=== PATIENT | male | born 1940 | race Caucasian/White ===

== ENCOUNTER 2019-02-04 09:55 | Day surgery (SDC) | payer MEDICARE, OTHER ==
[2019-01-28 15:12] VITALS: BMI 27.8
[~2019-02-04 09:55] MED LIST: ALPRAZolam 0.25 MG TAB PO PRN; ALPRAZolam 0.5 MG TAB PO PRN; ASPIRIN 325 MG TAB PO STA; ATORVASTATIN 80 MG TAB PO STA; NITROGLYCERIN SL TABS 0.4 MG TAB SUBLINGUAL PRN; SODIUM CHLORIDE 0.9% 1,000 ML in EMPTY BAG 1 BAG IV ONE
[2019-02-04 10:45] LABS: Glucose,Whole Blood 147 mg/dL (75-99)
[2019-02-04] MEDS ORDERED: SODIUM CHLORIDE 0.9% 1,000 ML IV ONE (11:00)
[2019-02-04 11:16] LABS: Basophils # (A) 0.1 k/uL (0-0.2); Basophils % (A) 1 %; Eosinophils # (A) 0.2 k/uL (0-0.7); Eosinophils % (A) 2 %; HGB 16.2 gm/dL (13.0-17.5); Lymphocytes # (A) 1.4 k/uL (1.0-4.8); Lymphocytes % (A) 20 %; MCH 30.3 pg (25.0-35.0); MCHC 33.1 g/dL (31.0-37.0); MCV 91.3 fL (80.0-100.0); Mean Platelet Volume 7.7; Monocytes # (A) 0.4 k/uL (0-1.0); Monocytes % (A) 6 %; Neutrophils # (A) 5.1 k/uL (1.3-7.7); Neutrophils % (A) 70 %; Platelet Count 230 k/uL (150-450); RBC 5.37 m/uL (4.30-5.90); RDW 13.2 % (11.5-15.5); WBC 7.3 k/uL (3.8-10.6)
[2019-02-04 11:41] LABS: Calcium 9.4 mg/dL (8.4-10.2); Potassium 4.2 mmol/L (3.5-5.1)
[2019-02-04 12:15] VITALS: RESP 16; TEMP 98.3
[2019-02-04] MEDS: MIDAZOLAM (PF) 2 MG/2 ML VIAL IV ONE ×2 (13:06→13:13)
[2019-02-04] MEDS ORDERED: LIDOCAINE 1% INJ 10MG/ML (20 ML MDV) SQ ONE (13:09)
[2019-02-04] MEDS ORDERED: VERAPAMIL SYRINGE (5 MG/10 ML) INTRAARTER ONE (13:11)
[2019-02-04] MEDS ORDERED: IOPAMIDOL-370 100ML BTL INJ ONE (13:20)
[2019-02-04] MEDS ORDERED: RX INFO: IV CONTRAST WAS GIVEN 1 EACH MISC MISCELLANE PRN (13:28)
[2019-02-04] MEDS ORDERED: SODIUM CHLORIDE 0.9% 1,000 ML IV SCH (13:30)
[2019-02-04 19:52] VITALS: BP 131/72; PULSE 59
--- NOTE | 2019-02-04 20:55 | CC ---
CARDIAC CATHETERIZATION REPORT DATE OF SERVICE: 02/04/2019 PERFORMING PHYSICIAN: Mac James MD, hat former. PROCEDURE PERFORMED: Selective right and left coronary angiogram. INDICATION: This is a pleasant 78-year-old gentleman who sees Dr. Lazo in the office as an outpatient with history of peripheral arterial disease and prior peripheral revascularization percutaneously as well as hypertension and dyslipidemia. He was experiencing shortness of breath with exertion concerning for severe coronary artery disease. Because of that, a heart catheterization was advised. APPROACH: Right radial artery. COMPLICATIONS: None. LEVEL OF SEDATION: Moderate, with sedation length of 14 minutes. PROCEDURE DESCRIPTION: After obtaining informed consent, the patient was brought to the cardiac mineral ore processing labourer. The right radial artery was cannulated using micropuncture technique. The micropuncture wire passed easily. Then I placed a 5-Latvian sheath. I gave the patient 2 mg of verapamil IA and 10,000 units of heparin IV. Selective right and left coronary angiogram was performed using JR4 and JL3.5 catheters. The procedure was completed without any complication. SELECTIVE CORONARY ANGIOGRAM: 1. The RCA is a large-caliber vessel. It is a dominant vessel and appeared to be angiographically normal. It distally bifurcates into PDA and PLV branches. Both appeared to be angiographically normal. 2. The left main is angiographically normal. It bifurcates into left circumflex and left anterior descending artery. 3. The left circumflex is a large-caliber vessel. It is a nondominant vessel. The proximal circumflex is angiographically normal and gives rise to a large OM branch which seems to be normal. The mid circumflex is normal and gives rise to a second OM branch which seems to be normal. The circumflex continues after that as a small- caliber vessel in the AV groove. 4. The LAD is a large-caliber vessel. The proximal LAD appeared to be normal and gives rise to a large diagonal branch which seems to be normal. The LAD in the mid and distal portion appeared to be normal. The LAD does reach the apex. CONCLUSION: 1. Normal coronary angiogram. 2. Possible dilated ascending aorta. POST-PROCEDURE MANAGEMENT: 1. Maximize medical treatment. 2. I would recommend obtaining a CTA of the thoracic aorta to assess for aneurysmal dilatation of the aorta. MMODL / IJN: [id number] /
== END 2019-02-04 18:42 | disposition home or self-care (01) ==
LOC: CATHCVL 09:55 → EDSEX 12:00 → CATHCVL 18:42
PROVIDERS: ATTEND Internal Medicine Interventional Cardiology
DX: R06.02 Shortness of breath (principal); I73.9 Peripheral vascular disease, unspecified; R94.31 Abnormal electrocardiogram [ECG] [EKG]; I10 Essential (primary) hypertension; E78.5 Hyperlipidemia, unspecified; I71.2 Thoracic aortic aneurysm, without rupture; E11.9 Type 2 diabetes mellitus without complications; F17.210 Nicotine dependence, cigarettes, uncomplicated; Z79.02 Long term (current) use of antithrombotics/antiplatelets; Z79.899 Other long term (current) drug therapy
CPT/HCPCS: 93454; 80048; 85025; C1769; C1894; J2001; J1644; Q9967; J2250

== ENCOUNTER 2020-04-07 12:15 | Inpatient (IN) | payer MEDICARE, OTHER ==
--- NOTE | 2020-04-07 13:17 | ED ---
URI HPI - General Chief Complaint: Upper Respiratory Infection Stated Complaint: COVID testing Time Seen by Provider: 04/07/20 12:40 Source: patient, family, RN/MD, RN notes reviewed Mode of arrival: ambulatory Limitations: no limitations - History of Present Illness Initial Comments: this is a 79-year-old male with a history of bladder cancer, CVA, chronic kidney disease who 6 days ago started having symptoms of a upper respiratory infection. He was tested for Covid 19 and over the nasal swab was negative the PCR test was positive. He has been having shortness of breath exertional dyspnea started developing a fever today was 99.5 upon arrival here. Also some body aches. No overt chest pain no other modifying factors at this time MD Complaint: fever, cough, nasal congestion, other - Related Data Home Medications Medication Instructions Recorded Confirmed Allopurinol [Zyloprim] 100 mg PO HS 01/28/19 02/04/19 Aspirin [Adult Low Dose Aspirin EC] 81 mg PO HS 01/28/19 02/04/19 Clopidogrel Bisulfate [Plavix] 75 mg PO DAILY 01/28/19 02/04/19 Glimepiride [Amaryl] 1 mg PO AC-BRKFST 01/28/19 02/04/19 Losartan [Cozaar] 25 mg PO DAILY 01/28/19 02/04/19 Metoprolol Succinate [Toprol Xl] 50 mg PO DAILY 01/28/19 02/04/19 Pantoprazole Sodium [Protonix] 40 mg PO DAILY 01/28/19 02/04/19 Rosuvastatin [Crestor] 20 mg PO HS 01/28/19 02/04/19 Vitamin D + Calcium 1 tab PO DAILY 01/28/19 02/04/19 amLODIPine [Norvasc] 5 mg PO DAILY 01/28/19 02/04/19 Allergies Allergy/AdvReac Type Severity Reaction Status Date / Time latex Allergy Rash/Hives Verified 02/04/19 11:14 Review of Systems ROS Statement: Those systems with pertinent positive or pertinent negative responses have been documented in the HPI. ROS Other: All systems not noted in ROS Statement are negative. Past Medical History Past Medical History: Blood Disorder, Cancer, CVA/TIA, Diabetes Mellitus, GERD/Reflux, Hypertension, Renal Disease, Vascular Disorder Additional Past Medical History / Comment(s): stroke 2002-no residual effects, SOB on excertion, severe vascular disease, varicose veins, hx past polycythemia, bladder cancer, hx anemia, stage III kidney disease, elevated PSA History of Any Multi-Drug Resistant Organisms: None Reported Past Surgical History: Appendectomy Additional Past Surgical History / Comment(s): stent in left leg 2007, parathryoidectomy, alejandro cataracts Past Anesthesia/Blood Transfusion Reactions: No Reported Reaction Past Psychological History: No Psychological Hx Reported Past Alcohol Use History: None Reported Past Drug Use History: None Reported - Past Family History Brother(s) Family Medical History: Cancer Mother Family Medical History: Deep Vein Thrombosis (DVT) General Exam - General Exam Comments Initial Comments: this is a well-developed well-nourished awake alert oriented 3 male Limitations: no limitations General appearance: alert, anxious Head exam: Present: atraumatic, normocephalic, normal inspection Eye exam: Present: normal appearance, PERRL, EOMI. Absent: scleral icterus, conjunctival injection, periorbital swelling ENT exam: Present: normal exam, mucous membranes moist Neck exam: Present: normal inspection, full ROM, other (no stridor JVD or bruits). Absent: tenderness, meningismus, lymphadenopathy Respiratory exam: Present: decreased breath sounds, other (some scattered wheezes noted). Absent: respiratory distress, wheezes, rales, rhonchi, stridor Cardiovascular Exam: Present: regular rate, normal rhythm, normal heart sounds. Absent: systolic murmur, diastolic murmur, rubs, gallop, clicks GI/Abdominal exam: Present: soft, normal bowel sounds. Absent: distended, tenderness, guarding, rebound, rigid Extremities exam: Present: normal inspection, full ROM, normal capillary refill. Absent: tenderness, pedal edema, joint swelling, calf tenderness Back exam: Present: normal inspection Neurological exam: Present: alert, oriented X3, CN II-XII intact Psychiatric exam: Present: normal affect, normal mood Skin exam: Present: warm, dry, intact, normal color. Absent: rash Course Vital Signs 04/07/20 04/07/20 12:27 14:15 Temperature 99.9 F H 100.6 F H Pulse Rate 82 61 Respiratory 18 18 Rate Blood Pressure 154/77 144/73 O2 Sat by Pulse 95 93 L Oximetry Medical Decision Making - Medical Decision Making I did discuss findings with patient and family as well as with Dr. Garcia patient will be admitted with consultation by Dr. Hernandez. - Lab Data Result diagrams: 04/07/20 13:14 04/07/20 13:12 Lab Results 04/07/20 04/07/20 04/07/20 Range/Units 13:12 13:12 13:12 WBC (3.8-10.6) k/uL RBC (4.30-5.90) m/uL Hgb (13.0-17.5) gm/dL Hct (39.0-53.0) % MCV (80.0-100.0) fL MCH (25.0-35.0) pg MCHC (31.0-37.0) g/dL RDW (11.5-15.5) % Plt Count (150-450) k/uL Neutrophils % % Lymphocytes % % Monocytes % % Eosinophils % % Basophils % % Neutrophils # (1.3-7.7) k/uL Lymphocytes # (1.0-4.8) k/uL Monocytes # (0-1.0) k/uL Eosinophils # (0-0.7) k/uL Basophils # (0-0.2) k/uL PT 10.0 (9.0-12.0) sec INR 1.0 (<1.2) APTT 28.0 (22.0-30.0) sec D-Dimer 1.58 H (<0.60) mg/L FEU Sodium 136 L (137-145) mmol/L Potassium 3.9 (3.5-5.1) mmol/L Chloride 101 (98-107) mmol/L Carbon Dioxide 28 (22-30) mmol/L Anion Gap 7 mmol/L BUN 18 (9-20) mg/dL Creatinine 1.29 H (0.66-1.25) mg/dL Est GFR (CKD-EPI)AfAm 61 (>60 ml/min/1.73 sqM) Est GFR (CKD-EPI)NonAf 53 (>60 ml/min/1.73 sqM) Glucose 203 H (74-99) mg/dL Plasma Lactic Acid Harish 2.1 H* (0.7-2.0) mmol/L Calcium 8.7 (8.4-10.2) mg/dL Magnesium 1.9 (1.6-2.3) mg/dL Total Bilirubin 0.7 (0.2-1.3) mg/dL AST 40 (17-59) U/L ALT 23 (4-49) U/L Alkaline Phosphatase 65 (38-126) U/L Lactate Dehydrogenase 494 (313-618) U/L C-Reactive Protein 44.2 H (<10.0) mg/L Total Protein 5.9 L (6.3-8.2) g/dL Albumin 3.5 (3.5-5.0) g/dL Lipase 172 (23-300) U/L Influenza Type A RNA (Not Detectd) Influenza Type B (PCR) (Not Detectd) 04/07/20 04/07/20 Range/Units 13:14 13:44 WBC 3.3 L (3.8-10.6) k/uL RBC 5.10 (4.30-5.90) m/uL Hgb 15.4 (13.0-17.5) gm/dL Hct 47.5 (39.0-53.0) % MCV 93.0 (80.0-100.0) fL MCH 30.2 (25.0-35.0) pg MCHC 32.4 (31.0-37.0) g/dL RDW 13.0 (11.5-15.5) % Plt Count 158 (150-450) k/uL Neutrophils % 63 % Lymphocytes % 22 % Monocytes % 12 % Eosinophils % 0 % Basophils % 1 % Neutrophils # 2.1 (1.3-7.7) k/uL Lymphocytes # 0.7 L (1.0-4.8) k/uL Monocytes # 0.4 (0-1.0) k/uL Eosinophils # 0.0 (0-0.7) k/uL Basophils # 0.0 (0-0.2) k/uL PT (9.0-12.0) sec INR (<1.2) APTT (22.0-30.0) sec D-Dimer (<0.60) mg/L FEU Sodium (137-145) mmol/L Potassium (3.5-5.1) mmol/L Chloride (98-107) mmol/L Carbon Dioxide (22-30) mmol/L Anion Gap mmol/L BUN (9-20) mg/dL Creatinine (0.66-1.25) mg/dL Est GFR (CKD-EPI)AfAm (>60 ml/min/1.73 sqM) Est GFR (CKD-EPI)NonAf (>60 ml/min/1.73 sqM) Glucose (74-99) mg/dL Plasma Lactic Acid Harish (0.7-2.0) mmol/L Calcium (8.4-10.2) mg/dL Magnesium (1.6-2.3) mg/dL Total Bilirubin (0.2-1.3) mg/dL AST (17-59) U/L ALT (4-49) U/L Alkaline Phosphatase (38-126) U/L Lactate Dehydrogenase (313-618) U/L C-Reactive Protein (<10.0) mg/L Total Protein (6.3-8.2) g/dL Albumin (3.5-5.0) g/dL Lipase (23-300) U/L Influenza Type A RNA Not Detected (Not Detectd) Influenza Type B (PCR) Not Detected (Not Detectd) - EKG Data -: EKG Interpreted by Me EKG shows normal: sinus rhythm EKG Comments: sinus rhythm a 61 appear interval 194 QRS duration 86 QT since QTC 424/426 that anterior fascicular block minimal voltage criteria for LVH poor R-wave progr ession - Radiology Data Radiology results: report reviewed (I did review the imaging patient does have evidence of bilateral infiltrates), image reviewed Disposition Clinical Impression: COVID-19, Viral syndrome, Febrile illness, acute, Failure to thrive Disposition: ADMITTED IP TO THIS HOSP Condition: Fair Referrals: None,Stated [REFERRING] - 1-2 days
--- NOTE | 2020-04-07 13:39 | XR ---
EXAMINATION TYPE: XR chest 1V portable DATE OF EXAM: 04/07/2020 COMPARISON: NONE HISTORY: Upper respiratory infection and fever. TECHNIQUE: Single AP portable frontal upright view of the chest is obtained. FINDINGS: There are faint increased opacities in the bilateral lower lungs and inferior periphery of the right upper lung. No pleural effusion or pneumothorax seen bilaterally. The cardiac silhouette size is mildly enlarged with atherosclerotic and ectatic thoracic aorta. The osseous structures are intact. IMPRESSION: Bilateral lower lung acute infiltrates along with inferior peripheral right upper lobe a cute infiltrate. Progress study advised. Correlate to exclude covid infection.
[2020-04-07 13:40] LABS: Basophils % (A) 1 %; Eosinophils % (A) 0 %; HCT 47.5 % (39.0-53.0); HGB 15.4 gm/dL (13.0-17.5); Lymphocytes # (A) 0.7 k/uL (1.0-4.8); Lymphocytes % (A) 22 %; MCH 30.2 pg (25.0-35.0); MCHC 32.4 g/dL (31.0-37.0); Mean Platelet Volume 8.3; Monocytes # (A) 0.4 k/uL (0-1.0); Monocytes % (A) 12 %; Neutrophils # (A) 2.1 k/uL (1.3-7.7); Neutrophils % (A) 63 %; Platelet Count 158 k/uL (150-450); WBC 3.3 k/uL (3.8-10.6)
[2020-04-07] MEDS ORDERED: ACETAMINOPHEN TAB 500 MG TAB PO STA (13:40)
[2020-04-07 13:41] LABS: Albumin 3.5 g/dL (3.5-5.0); C Reactive Protein 44.2 mg/L (<10.0); Calcium 8.7 mg/dL (8.4-10.2); Magnesium 1.9 mg/dL (1.6-2.3); Potassium 3.9 mmol/L (3.5-5.1); Total Bilirubin 0.7 mg/dL (0.2-1.3); Total Protein 5.9 g/dL (6.3-8.2)
[2020-04-07] MEDS ORDERED: SODIUM CHLORIDE 0.9% 1,000 ML IV STA (13:49)
[2020-04-07 14:01] LABS: D-Dimer 1.58 mg/L FEU (<0.60)
[2020-04-07] MEDS ORDERED: ACETAMINOPHEN TAB 325 MG TAB PO PRN (15:02)
[2020-04-07] MEDS ORDERED: NALOXONE 0.4 MG/ML 1 ML VIAL IV PRN (15:02)
--- NOTE | 2020-04-07 15:45 | CT ---
EXAMINATION TYPE: CT angio chest DATE OF EXAM: 04/07/2020 3:24 PM COMPARISON: Chest x-ray earlier today HISTORY: Cough, shortness of breath and abdominal pain. CT DLP: 366.2 mGycm Automated exposure control for dose reduction was used. CONTRAST: CTA scan of the thorax is performed with IV Contrast, patient injected with 69ml mL of Isovue 370, pu lmonary embolism protocol. . FINDINGS: Exam suboptimal as patient unable to hold breath limits evaluation particularly for subcent imeter nodules LUNGS: Low lung volumes are redemonstrated. Multifocal groundglass opacities are present in the right upper lobe and posterior aspect of the left upper lobe. There is additional involvement in the perip pushpa of the lower lobes with some consolidation posterior aspect right lower lobe. Small area of invo lvement anterior-inferior aspect right lower lobe periphery superior aspect of the right middle lobe. No pneumothorax noted bilaterally. There is 10 x 9 mm posterior subpleural right lower lobe nodule a xial image 79. There are trace bilateral pleural effusions. MEDIASTINUM: There is satisfactory enhancement of the pulmonary artery and its branches, there is no CT evidence for pulmonary embolism. Satisfactory enhancement of the ascending aorta without aneurysm or dissection. There is enlarged subcarinal lymph node. No pericardial effusion is seen. Heart siz e upper limits of normal. Left-sided cardiac apex and arch. OTHER: There is a right sided stomach bubble. There is nodularity posterior to the liver, possible s plenosis. Stomach poorly distended. Last axial images show rounded density in the hilum, etiology unc ertain is only partially imaged. Some tortuous small vessels in the posterior epigastric region. Mode rate multilevel spurring and disc space narrowing in the spine. IMPRESSION: 1. No CT evidence for acute pulmonary embolism. 2. Bilateral multifocal groundglass opacities, findings correlate with suspected covid 19 infection. 3. Tiny bilateral pleural effusions. Enlarged subcarinal lymph node. Findings are not typical of covi d infection. 4. Left-sided stomach. Correlate for situs abnormality.
[2020-04-07] MEDS: SODIUM CHLORIDE 0.9% 1,000 ML IV SCH ×2 (16:11→20:53)
[2020-04-07] MEDS: INSULIN ASPART (NovoLOG) 100 UNIT/ML VIAL SQ SCH ×2 (17:42→20:35)
[2020-04-07 17:45] LABS: Glucose,Whole Blood 138 mg/dL (75-99)
[2020-04-07] MEDS ORDERED: DEXAMETHASONE SOD PHOSPHATE 4 MG/ML 1 ML VIAL IV SCH (18:00)
--- NOTE | 2020-04-07 18:15 | P.CNPUL ---
History of Present Illness Consult date: 04/07/20 Reason for consult: dyspnea, cough History of present illness: 79-year-old male patient known history of bladder cancer and chronic kidney disease in addition to history of CVA, an ex-smoker was coming and along with several other family members after being infected with covert 19. The patient started getting some pleuritic approximately a week ago. He has been having progressive worsening shortness of breath along with cough. Today the t emperature is 99.5 on arrival. He has body aches. No nausea. No vomiting. No diarrhea. No altered mentation. The white cell count is at 3.3. He has lymphopenia with a lymphocyte count of 0.7. Platelet count is at 158. D-dimer 0.58. Creatinine is at 1.29 with a BUN of 18. Lactic acid was at 2.1 dropped down to 1.2. His CRP level is at 44.2. Influenza screen was negative. The CT angiogram is showing bilateral multifocal groundglass opacities consistent with covert 19 infection. The patient has had a bilateral pleural effusions and a large subcarinal lymph node which is probably not related to covert 19. Review of Systems Constitutional: Reports chills, Reports fatigue, Reports fever, Reports lethargy Eyes: denies as per HPI, denies blurred vision, denies bulging eye, denies decreased vision, denies diplopia, denies discharge, denies dry eye, denies irritation, denies itching, denies pain, denies photophobia, denies loss of peripheral vision, denies loss of vision, denies tunnel vision/blind spots Ears: deny: decreased hearing, ear discharge, earache, tinnitus Ears, nose, mouth and throat: Reports as per HPI Breasts: absent: as per HPI, gynecomastia Cardiovascular: Reports dyspnea on exertion Respiratory: Reports cough, Reports dyspnea Gastrointestinal: Reports as per HPI Genitourinary: Reports as per HPI Musculoskeletal: Reports as per HPI Musculoskeletal: absent: ankle pain, ankle stiffness, ankle swelling, as per HPI, elbow pain, elbow stiffness, elbow swelling, foot pain, foot stiffness, foot swelling, hand pain, hand stiffness, hand swelling, hip pain, hip stiffne ss, hip swelling, knee pain, knee stiffness, knee swelling, shoulder pain, shoulder stiffness, shoulder swelling, wrist pain, wrist stiffness, wrist swelling Integumentary: Reports as per HPI Neurological: Reports as per HPI, Reports weakness Psychiatric: Reports as per HPI Endocrine: Reports as per HPI, Reports fatigue Hematologic/Lymphatic: Reports as per HPI Allergic/Immunologic: Reports as per HPI Past Medical History Past Medical History: Blood Disorder, Cancer, CVA/TIA, Diabetes Mellitus, GERD/Reflux, GI Bleed, Hyperlipidemia, Hypertension, Renal Disease, Vascular Disorder Additional Past Medical History / Comment(s): Polycythemia Vera, bladder cancer with polyp removal/BCG treatments, 2002 CVA-no residual, NIDDM type II, CKD stage III, anemia, colon polyp, lower GI bleed, elevated PSA, PVD/varicosities/claudication, thoracic aneurysm being monitored. History of Any Multi-Drug Resistant Organisms: None Reported Past Surgical History: Appendectomy, Bladder Surgery Additional Past Surgical History / Comment(s): L leg stent 2006, cystos/polyp removal/BCG instillation, parathyroidectomy d/t adenoma, colonoscopy/benign polyp, bilateral cataract removals/lens implants. Past Anesthesia/Blood Transfusion Reactions: No Reported Reaction Smoking Status: Former smoker - Past Family History Brother(s) Family Medical History: Cancer Mother Family Medical History: Deep Vein Thrombosis (DVT) Additional Family Medical History / Comment(s): Mother had bilateral DVTs, CVA, LA Father Family Medical History: Myocardial Infarction (LA) Additional Family Medical History / Comment(s): Father in his 60s with massive LA. Medications and Allergies Home Medications Medication Instructions Recorded Confirmed Type Allopurinol [Zyloprim] 100 mg PO DAILY 01/28/19 04/07/20 History Aspirin [Adult Low Dose Aspirin EC] 81 mg PO DAILY 01/28/19 04/07/20 History Clopidogrel Bisulfate [Plavix] 75 mg PO DAILY 01/28/19 04/07/20 History Metoprolol Succinate [Toprol Xl] 50 mg PO DAILY 01/28/19 04/07/20 History Pantoprazole Sodium [Protonix] 40 mg PO DAILY 01/28/19 04/07/20 History Rosuvastatin [Crestor] 20 mg PO HS 01/28/19 04/07/20 History amLODIPine [Norvasc] 5 mg PO DAILY 01/28/19 04/07/20 History Losartan [Cozaar] 50 mg PO DAILY 04/07/20 04/07/20 History glipiZIDE [Glucotrol] 5 mg PO AC-BRKFST 04/07/20 04/07/20 History sitaGLIPtin [Januvia] 100 mg PO DAILY 04/07/20 04/07/20 History Allergies Allergy/AdvReac Type Severity Reaction Status Date / Time latex Allergy Rash/Hives Verified 04/07/20 15:14 Physical Exam Vitals: Vital Signs Temp Pulse Resp BP Pulse Ox 04/07/20 15:00 99.8 F H 53 L 18 134/76 92 L 04/07/20 14:15 100.6 F H 61 18 144/73 93 L 04/07/20 12:27 99.9 F H 82 18 154/77 95 Intake and Output 04/07/20 04/07/20 04/07/20 06:59 14:59 22:59 Other: Weight 67.585 kg 67.585 kg The patient appeared well nourished and normally developed. Vital signs as documented. Head exam is unremarkable. No scleral icterus or corneal arcus noted. Neck is without jugular venous distension, thyromegaly, or carotid bruits. Carotid upstrokes are brisk bilaterally. Lungs are clear to auscultation and percussion. Cardiac exam reveals the PMI to be normally sized and situated. Rhythm is regular. First and second heart sounds normal. No murmurs, rubs or gallops. Abdominal exam reveals normal bowel sounds, no masses, no organomegaly and no aortic enlargement. Extremities are nonedematous and both femoral and pedal pulses are normal.Neurologically, the patient is awake and alert and the patient does not have any focal neurological deficit. Cranial nerves are essentially intact.Examination of the skin revealed no evidence of significant rashes, suspicious appearing nevi or other concerning lesions. Results - Laboratory Findings CBC and BMP: 04/07/20 13:14 04/07/20 13:12 ABG WBC 3.3 k/uL (3.8-10.6) L 04/07/20 13:14 RBC 5.10 m/uL (4.30-5.90) 04/07/20 13:14 Hgb 15.4 gm/dL (13.0-17.5) 04/07/20 13:14 Hct 47.5 % (39.0-53.0) 04/07/20 13:14 MCV 93.0 fL (80.0-100.0) 04/07/20 13:14 MCH 30.2 pg (25.0-35.0) 04/07/20 13:14 MCHC 32.4 g/dL (31.0-37.0) 04/07/20 13:14 RDW 13.0 % (11.5-15.5) 04/07/20 13:14 Plt Count 158 k/uL (150-450) 04/07/20 13:14 Neutrophils % 63 % 04/07/20 13:14 Lymphocytes % 22 % 04/07/20 13:14 Monocytes % 12 % 04/07/20 13:14 Eosinophils % 0 % 04/07/20 13:14 Basophils % 1 % 04/07/20 13:14 Neutrophils # 2.1 k/uL (1.3-7.7) 04/07/20 13:14 Lymphocytes # 0.7 k/uL (1.0-4.8) L 04/07/20 13:14 Monocytes # 0.4 k/uL (0-1.0) 04/07/20 13:14 Eosinophils # 0.0 k/uL (0-0.7) 04/07/20 13:14 Basophils # 0.0 k/uL (0-0.2) 04/07/20 13:14 PT 10.0 sec (9.0-12.0) 04/07/20 13:12 INR 1.0 (<1.2) 04/07/20 13:12 APTT 28.0 sec (22.0-30.0) 04/07/20 13:12 D-Dimer 1.58 mg/L FEU (<0.60) H 04/07/20 13:12 Sodium 136 mmol/L (137-145) L 04/07/20 13:12 Potassium 3.9 mmol/L (3.5-5.1) 04/07/20 13:12 Chloride 101 mmol/L (98-107) 04/07/20 13:12 Carbon Dioxide 28 mmol/L (22-30) 04/07/20 13:12 Anion Gap 7 mmol/L 04/07/20 13:12 BUN 18 mg/dL (9-20) 04/07/20 13:12 Creatinine 1.29 mg/dL (0.66-1.25) H 04/07/20 13:12 Est GFR (CKD-EPI)AfAm 61 (>60 ml/min/1.73 sqM) 04/07/20 13:12 Est GFR (CKD-EPI)NonAf 53 (>60 ml/min/1.73 sqM) 04/07/20 13:12 Glucose 203 mg/dL (74-99) H 04/07/20 13:12 POC Glucose (mg/dL) 138 mg/dL (75-99) H 04/07/20 17:42 POC Glu [employer] Contractor ID Elina Gonsalez 04/07/20 17:42 Lactic Ac Sepsis Rflx Y 04/07/20 13:42 Plasma Lactic Acid Harish 1.2 mmol/L (0.7-2.0) 04/07/20 15:57 Calcium 8.7 mg/dL (8.4-10.2) 04/07/20 13:12 Magnesium 1.9 mg/dL (1.6-2.3) 04/07/20 13:12 Total Bilirubin 0.7 mg/dL (0.2-1.3) 04/07/20 13:12 AST 40 U/L (17-59) 04/07/20 13:12 ALT 23 U/L (4-49) 04/07/20 13:12 Alkaline Phosphatase 65 U/L (38-126) 04/07/20 13:12 Lactate Dehydrogenase 494 U/L (313-618) 04/07/20 13:12 C-Reactive Protein 44.2 mg/L (<10.0) H 04/07/20 13:12 Total Protein 5.9 g/dL (6.3-8.2) L 04/07/20 13:12 Albumin 3.5 g/dL (3.5-5.0) 04/07/20 13:12 Lipase 172 U/L (23-300) 04/07/20 13:12 Influenza Type A RNA Not Detected (Not Detectd) 04/07/20 13:44 Influenza Type B (PCR) Not Detected (Not Detectd) 04/07/20 13:44 PT/INR, D-dimer PT 10.0 sec (9.0-12.0) 04/07/20 13:12 INR 1.0 (<1.2) 04/07/20 13:12 D-Dimer 1.58 mg/L FEU (<0.60) H 04/07/20 13:12 Abnormal lab findings: Abnormal Labs 04/07/20 04/07/20 04/07/20 13:12 13:12 13:12 WBC Lymphocytes # D-Dimer 1.58 H Sodium 136 L Creatinine 1.29 H Glucose 203 H POC Glucose (mg/dL) Plasma Lactic Acid Harish 2.1 H* C-Reactive Protein 44.2 H Total Protein 5.9 L 04/07/20 04/07/20 13:14 17:42 WBC 3.3 L Lymphocytes # 0.7 L D-Dimer Sodium Creatinine Glucose POC Glucose (mg/dL) 138 H Plasma Lactic Acid Harish C-Reactive Protein Total Protein - Diagnostic Findings Chest x-ray: image reviewed Assessment and Plan Plan: 1 acute COVID 19 pneumonia 2 acute hypoxic respiratory failure secondary to above 3 dyspnea and worsening cough secondary to above 4 lymphopenia secondary to above in addition to mild leukopenia 5 chronic kidney disease with a GFR of 53 6 history of bladder cancer 8 hypertension 9 history of CVA [id number] without any residual deficits 10 history of polycythemia vera and hemoglobin is stable for now 11 peripheral vascular disease with previous stenting of the left lower extremity in 2006 12 history of hyperparathyroidism post parathyroidectomy 13 diabetes mellitus 14 hyperlipidemia Plan Initiated Decadron 6 mg by mouth on a daily basis Monitor the blood sugar and utilize insulin sliding scale coverage for hyperglycemia. Cover this patient with zinc sulfate, melatonin and Pepcid Will initiate Remdesivir , a total of 5 day course Resume outpatient medication IV hydration with normal saline at the rate of 130 mL an hour We'll continue to follow
[2020-04-07] MEDS ORDERED: REMDESIVIR (EUA) 200 MG in SODIUM CHLORIDE 0.9% 250 ML IVPB ONE (20:00)
[2020-04-07 20:33] LABS: Glucose,Whole Blood 139 mg/dL (75-99)
[2020-04-07] MEDS: ATORVASTATIN 40 MG TAB PO SCH (20:52)
[2020-04-07] MEDS: allopurinoL 100 MG TAB PO SCH (20:52)
[2020-04-07] MEDS: ASPIRIN 81 MG PO SCH (20:52)
[2020-04-07] MEDS: ZINC SULFATE 220 MG CAP PO SCH (20:53)
[2020-04-07] MEDS: dexAMETHasone 2 MG TAB PO SCH (20:53)
[2020-04-07] MEDS: ENOXAPARIN 40 MG/0.4 ML SYRINGE SQ SCH (20:55)
[2020-04-07] MEDS: ASCORBIC ACID 500 MG TAB PO SCH (20:55)
[2020-04-07 23:27] LABS: Ferritin 391.9 ng/mL (22.0-322.0)
[2020-04-08] MEDS: SODIUM CHLORIDE 0.9% 1,000 ML IV SCH ×3 (06:11→21:17)
[2020-04-08 06:22] LABS: Basophils % (A) 1 %; Eosinophils % (A) 0 %; HCT 45.1 % (39.0-53.0); HGB 14.2 gm/dL (13.0-17.5); Lymphocytes # (A) 0.4 k/uL (1.0-4.8); Lymphocytes % (A) 21 %; MCH 29.8 pg (25.0-35.0); MCHC 31.6 g/dL (31.0-37.0); MCV 94.4 fL (80.0-100.0); Mean Platelet Volume 7.9; Monocytes # (A) 0.1 k/uL (0-1.0); Monocytes % (A) 3 %; Neutrophils # (A) 1.3 k/uL (1.3-7.7); Neutrophils % (A) 74 %; Platelet Count 130 k/uL (150-450); RBC 4.78 m/uL (4.30-5.90); WBC 1.7 k/uL (3.8-10.6)
[2020-04-08 06:32] LABS: D-Dimer 1.3 mg/L FEU (<0.60)
[2020-04-08 07:17] LABS: Glucose,Whole Blood 210 mg/dL (75-99)
[2020-04-08] MEDS ORDERED: PANTOPRAZOLE 40 MG TABLET PO SCH (07:30)
[2020-04-08] MEDS: ASCORBIC ACID 500 MG TAB PO SCH (08:51)
[2020-04-08] MEDS: ENOXAPARIN 40 MG/0.4 ML SYRINGE SQ SCH (08:52)
[2020-04-08] MEDS: METOPROLOL SUCCINATE (ER) 50 MG TAB.ER.24H PO SCH (08:52)
[2020-04-08] MEDS: LOSARTAN 25 MG TAB PO SCH (08:52)
[2020-04-08] MEDS: CLOPIDOGREL 75 MG TAB PO SCH (08:52)
[2020-04-08] MEDS: GLIMEPIRIDE 1 MG TAB PO SCH (08:52)
[2020-04-08] MEDS: CALCIUM CARB-VIT D 500MG-200UN 1 EACH TAB PO SCH (08:52)
[2020-04-08] MEDS: amLODIPine 5 MG TAB PO SCH (08:52)
[2020-04-08] MEDS: dexAMETHasone 2 MG TAB PO SCH (08:52)
[2020-04-08] MEDS: INSULIN ASPART (NovoLOG) 100 UNIT/ML VIAL SQ SCH ×4 (08:52→20:31)
[2020-04-08] MEDS: ZINC SULFATE 220 MG CAP PO SCH (08:52)
[2020-04-08] MEDS ORDERED: ZINC SULFATE 220 MG CAP PO SCH (09:00)
[2020-04-08 09:52] LABS: African American GFR (CKD) 60.1 (60.0-200.0); Albumin 3.5 g/dL (3.80-4.90); Albumin/Globulin Ratio 2.33 (1.60-3.17); Anion Gap 7.3 mmol/L (4.00-12.00); BUN/Creat Ratio 13.85 Ratio (12.00-20.00); C Reactive Protein 5.1 mg/dL (0.0-0.8); Calcium 8.2 mg/dL (8.7-10.3); Carbon Dioxide 26.7 mmol/L (21.6-31.8); Globulin 1.5 g/dL (1.6-3.3); Non-African American GFR(CKD) 51.9 (60.0-200.0); Potassium 4.4 mmol/L (3.5-5.5); Total Bilirubin 0.4 mg/dL (0.3-1.2)
[2020-04-08 11:27] LABS: Glucose,Whole Blood 305 mg/dL (75-99)
--- NOTE | 2020-04-08 13:02 | P.PN ---
Subjective Progress Note Date: 04/08/20 Principal diagnosis: Acute CoVID 19 pneumonia 79-year-old male patient known history of bladder cancer and chronic kidney disease in addition to history of CVA, an ex-smoker was coming and along with several other family members after being infected with covert 19. The patient started getting some pleuritic approximately a week ago. He has been having progressive worsening shortness of breath along with cough. Today the temperature is 99.5 on arrival. He has body aches. No nausea. No vomiting. No diarrhea. No altered mentation. The white cell count is at 3.3. He has lymphopenia with a lymphocyte count of 0.7. Platelet count is at 158. D-dimer 0.58. Creatinine is at 1.29 with a BUN of 18. Lactic acid was at 2.1 dropped down to 1.2. His CRP level is at 44.2. Influenza screen was negative. The CT angiogram is showing bilateral multifocal groundglass opacities consistent with covert 19 infection. The patient has had a bilateral pleural effusions and a large subcarinal lymph node which is probably not related to covert 19. The patient is seen today 04/08/2020 in follow-up on the regular medical floor. He is awake and alert in no acute distress. Currently sitting up in bed. Denies any worsening shortness of breath, cough or congestion. Maintaining O2 saturations in the low 90s on room air. He is currently afebrile. Hemodynamically stable. White count 1.7. Hemoglobin 14.2. Platelets 130,000. D-dimer 1.0. Sodium 141. Potassium 4.4. Creatinine 1.3. Glucose 218. LDH 216. C-reactive protein 5.1. He is day 2 of them to severe. He is maintained on Zantac, Protonix, vitamin C, vitamin D, dexamethasone, Lovenox. Objective - Vital Signs Vital signs: Vital Signs Temp 98.4 F 04/08/20 07:00 Pulse 65 04/08/20 07:00 Resp 18 04/08/20 07:00 BP 166/76 04/08/20 07:00 Pulse Ox 91 L 04/08/20 07:00 Intake & Output 04/07/20 04/08/20 04/08/20 18:59 06:59 18:59 Weight 67.585 kg Other: Voiding Method Toilet # Voids 2 - Exam GENERAL EXAM: Alert, active, very pleasant 79-year-old gentleman, on room air, comfortable in no apparent distress. HEAD: Normocephalic. EYES: Normal reaction of pupils, equal size. NOSE: Clear with pink turbinates. THROAT: No erythema or exudates. NECK: No masses, no JVD. CHEST: No chest wall deformity. LUNGS: Equal air entry with few scattered rhonchi. CVS: S1 and S2 normal with no audible murmur, regular rhythm. ABDOMEN: No hepatosplenomegaly, normal bowel sounds, no guarding or rigidity. SPINE: No scoliosis or deformity SKIN: No rashes CENTRAL NERVOUS SYSTEM: No focal deficits, tone is normal in all 4 extremities. EXTREMITIES: There is no peripheral edema. No clubbing, no cyanosis. Peripheral pulses are intact. - Labs CBC & Chem 7: 04/08/20 05:37 04/08/20 05:37 Labs: Abnormal Lab Results - Last 24 Hours (Table) 04/07/20 04/07/20 04/07/20 Range/Units 13:12 13:12 13:12 WBC (3.8-10.6) k/uL Plt Count (150-450) k/uL Lymphocytes # (1.0-4.8) k/uL D-Dimer 1.58 H (<0.60) mg/L FEU Sodium 136 L (137-145) mmol/L Creatinine 1.29 H (0.66-1.25) mg/dL Est GFR (CKD-EPI)NonAf (60.0-200.0) Glucose 203 H (74-99) mg/dL POC Glucose (mg/dL) (75-99) mg/dL Plasma Lactic Acid Harish 2.1 H* (0.7-2.0) mmol/L Calcium (8.7-10.3) mg/dL Ferritin 391.9 H (22.0-322.0) ng/mL AST (14-35) U/L C-Reactive Protein 44.2 H (<10.0) mg/L Total Protein 5.9 L (6.3-8.2) g/dL Albumin (3.80-4.90) g/dL Globulin (1.6-3.3) g/dL Coronavirus (PCR) (Not Detected) 04/07/20 04/07/20 04/07/20 Range/Units 13:14 13:44 17:42 WBC 3.3 L (3.8-10.6) k/uL Plt Count (150-450) k/uL Lymphocytes # 0.7 L (1.0-4.8) k/uL D-Dimer (<0.60) mg/L FEU Sodium (137-145) mmol/L Creatinine (0.66-1.25) mg/dL Est GFR (CKD-EPI)NonAf (60.0-200.0) Glucose (74-99) mg/dL POC Glucose (mg/dL) 138 H (75-99) mg/dL Plasma Lactic Acid Harish (0.7-2.0) mmol/L Calcium (8.7-10.3) mg/dL Ferritin (22.0-322.0) ng/mL AST (14-35) U/L C-Reactive Protein (<10.0) mg/L Total Protein (6.3-8.2) g/dL Albumin (3.80-4.90) g/dL Globulin (1.6-3.3) g/dL Coronavirus (PCR) Detected H (Not Detected) 04/07/20 04/08/20 04/08/20 Range/Units 20:30 05:37 05:37 WBC 1.7 L (3.8-10.6) k/uL Plt Count 130 L (150-450) k/uL Lymphocytes # 0.4 L (1.0-4.8) k/uL D-Dimer 1.30 H (<0.60) mg/L FEU Sodium (137-145) mmol/L Creatinine (0.66-1.25) mg/dL Est GFR (CKD-EPI)NonAf (60.0-200.0) Glucose (74-99) mg/dL POC Glucose (mg/dL) 139 H (75-99) mg/dL Plasma Lactic Acid Harish (0.7-2.0) mmol/L Calcium (8.7-10.3) mg/dL Ferritin (22.0-322.0) ng/mL AST (14-35) U/L C-Reactive Protein (<10.0) mg/L Total Protein (6.3-8.2) g/dL Albumin (3.80-4.90) g/dL Globulin (1.6-3.3) g/dL Coronavirus (PCR) (Not Detected) 04/08/20 04/08/20 04/08/20 Range/Units 05:37 07:16 11:26 WBC (3.8-10.6) k/uL Plt Count (150-450) k/uL Lymphocytes # (1.0-4.8) k/uL D-Dimer (<0.60) mg/L FEU Sodium (137-145) mmol/L Creatinine (0.66-1.25) mg/dL Est GFR (CKD-EPI)NonAf 51.9 L (60.0-200.0) Glucose 218 H (74-99) mg/dL POC Glucose (mg/dL) 210 H 305 H (75-99) mg/dL Plasma Lactic Acid Harish (0.7-2.0) mmol/L Calcium 8.2 L (8.7-10.3) mg/dL Ferritin (22.0-322.0) ng/mL AST 36 H (14-35) U/L C-Reactive Protein 5.1 H (<10.0) mg/L Total Protein 5.0 L (6.3-8.2) g/dL Albumin 3.50 L (3.80-4.90) g/dL Globulin 1.5 L (1.6-3.3) g/dL Coronavirus (PCR) (Not Detected) Assessment and Plan Assessment: 1 acute COVID 19 pneumonia 2 acute hypoxic respiratory failure secondary to above 3 dyspnea and worsening cough secondary to above 4 lymphopenia secondary to above in addition to mild leukopenia 5 chronic kidney disease with a GFR of 53 6 history of bladder cancer 8 hypertension 9 history of CVA [id number] without any residual deficits 10 history of polycythemia vera and hemoglobin is stable for now 11 peripheral vascular disease with previous stenting of the left lower extremity in 2006 12 history of hyperparathyroidism post parathyroidectomy 13 diabetes mellitus 14 hyperlipidemia Plan The patient was seen and evaluated by Dr. Hernandez Continue Remdesivir, complete a five-day course Continue current medications including dexamethasone for total of 10 days Continue isolation precautions We will continue to follow make further recommendations based on his clinical status I, the cosigning physician, performed a history & physical examination of the patient. Lungs sounds are clear. Maintaining good O2 saturations in the 90s on room air. I discussed the assessment and plan of care with my nurse pra ctcheloer, Pam Mccall. I attest to the above note as dictated by her.
[2020-04-08 16:28] LABS: Glucose,Whole Blood 289 mg/dL (75-99)
[2020-04-08 20:25] LABS: Glucose,Whole Blood 228 mg/dL (75-99)
[2020-04-08] MEDS: ATORVASTATIN 40 MG TAB PO SCH (20:30)
[2020-04-08] MEDS: allopurinoL 100 MG TAB PO SCH (20:30)
[2020-04-08] MEDS: ASPIRIN 81 MG PO SCH (20:30)
[2020-04-08] MEDS: REMDESIVIR (EUA) 100 MG in SODIUM CHLORIDE 0.9% 250 ML IVPB SCH (21:17)
--- NOTE | 2020-04-08 22:56 | P.HPIM ---
History of Present Illness H&P Date: 04/08/20 Chief Complaint: shortness of breath, fever Michael Monson is a 79 yo M with PMH of bladder cancer, T2DM, HTN who presented to the ED with worsening COVID 19. He reports his symptoms started a little more than a week ago and has developed progressive and worsening shortness of breath, pleuritic chest pain and fever. His had similar symptoms and both were positive for COVID 19 testing outpatient. On presentation he was febrile and hypoxic on room air; WBC 3.3k reflecting lymphopenia with a lymphocyte count of 0.7. CT angiogram with bilateral multifocal groundglass opacities consistent with COVID19 infection. Review of Systems All systems: negative Constitutional: Reports chills, Reports fever, Reports malaise, Reports weakness Eyes: denies blurred vision, denies pain Ears, nose, mouth and throat: Denies headache, Denies sore throat Cardiovascular: Denies chest pain, Denies shortness of breath Respiratory: Reports cough, Reports pain on inspiration, Reports wheezing Gastrointestinal: Denies abdominal pain, Denies diarrhea, Denies nausea, Denies vomiting Musculoskeletal: Denies myalgias Integumentary: Denies pruritus, Denies rash Neurological: Denies numbness, Denies weakness Psychiatric: Denies anxiety, Denies depression Endocrine: Denies fatigue, Denies weight change Past Medical History Past Medical History: Blood Disorder, Cancer, CVA/TIA, Diabetes Mellitus, GERD/Reflux, GI Bleed, Hyperlipidemia, Hypertension, Renal Disease, Vascular Disorder Additional Past Medical History / Comment(s): Polycythemia Vera, bladder cancer with polyp removal/BCG treatments, 2002 CVA-no residual, NIDDM type II, CKD stage III, anemia, colon polyp, lower GI bleed, elevated PSA, PVD/v aricosities/claudication, thoracic aneurysm being monitored. History of Any Multi-Drug Resistant Organisms: None Reported Past Surgical History: Appendectomy, Bladder Surgery Additional Past Surgical History / Comment(s): L leg stent 2006, cystos/polyp removal/BCG instillation, parathyroidectomy d/t adenoma, colonoscopy/benign polyp, bilateral cataract removals/lens implants. Past Anesthesia/Blood Transfusion Reactions: No Reported Reaction Smoking Status: Former smoker - Past Family History Brother(s) Family Medical History: Cancer Mother Family Medical History: Deep Vein Thrombosis (DVT) Additional Family Medical History / Comment(s): Mother had bilateral DVTs, CVA, MO Father Family Medical History: Myocardial Infarction (MO) Additional Family Medical History / Comment(s): Father in his 60s with massive MO. Medications and Allergies Home Medications Medication Instructions Recorded Confirmed Type Allopurinol [Zyloprim] 100 mg PO DAILY 01/28/19 04/07/20 History Aspirin [Adult Low Dose Aspirin EC] 81 mg PO DAILY 01/28/19 04/07/20 History Clopidogrel Bisulfate [Plavix] 75 mg PO DAILY 01/28/19 04/07/20 History Metoprolol Succinate [Toprol Xl] 50 mg PO DAILY 01/28/19 04/07/20 History Pantoprazole Sodium [Protonix] 40 mg PO DAILY 01/28/19 04/07/20 History Rosuvastatin [Crestor] 20 mg PO HS 01/28/19 04/07/20 History amLODIPine [Norvasc] 5 mg PO DAILY 01/28/19 04/07/20 History Losartan [Cozaar] 50 mg PO DAILY 04/07/20 04/07/20 History glipiZIDE [Glucotrol] 5 mg PO AC-BRKFST 04/07/20 04/07/20 History sitaGLIPtin [Januvia] 100 mg PO DAILY 04/07/20 04/07/20 History Allergies Allergy/AdvReac Type Severity Reaction Status Date / Time latex Allergy Rash/Hives Verified 04/07/20 15:14 Physical Exam Vitals: Vital Signs Temp Pulse Resp BP Pulse Ox 04/08/20 19:44 98.6 F 60 18 164/79 91 L 04/08/20 19:37 18 04/08/20 14:28 98.5 F 63 18 146/77 95 04/08/20 07:00 98.4 F 65 18 166/76 91 L 04/08/20 03:06 99.0 F 63 18 161/81 92 L Intake and Output 04/08/20 04/08/20 04/08/20 06:59 14:59 22:59 Other: Voiding Method Toilet Toilet # Voids 2 3 1 General: well nourished, well developed, NAD. Vitals reviewed Eyes: PERRL, EOMI, conjunctiva normal HENT: normocephalic, mucus membranes moist Neck: supple, no JVD Lungs: normal respiratory effort. There are rhonchi bilaterally. No rales CV: Regular rate and rhythm, no murmur. Peripheral pulses 2+ Abdomen: soft, nondistended, no organomegaly Lymph: no cervical or axillary LAD Skin: warm and dry. Neuro: A&Ox3, normal mood and affect Results CBC & Chem 7: 04/08/20 05:37 04/08/20 05:37 Labs: Abnormal Lab Results - Last 24 Hours (Table) 04/07/20 04/07/20 04/08/20 Range/Units 13:12 13:44 05:37 WBC 1.7 L (3.8-10.6) k/uL Plt Count 130 L (150-450) k/uL Lymphocytes # 0.4 L (1.0-4.8) k/uL D-Dimer (<0.60) mg/L FEU Est GFR (CKD-EPI)NonAf (60.0-200.0) Glucose (70-110) mg/dL POC Glucose (mg/dL) (75-99) mg/dL Calcium (8.7-10.3) mg/dL Ferritin 391.9 H (22.0-322.0) ng/mL AST (14-35) U/L C-Reactive Protein (0.0-0.8) mg/dL Total Protein (6.2-8.2) g/dL Albumin (3.80-4.90) g/dL Globulin (1.6-3.3) g/dL Coronavirus (PCR) Detected H (Not Detected) 04/08/20 04/08/20 04/08/20 Range/Units 05:37 05:37 07:16 WBC (3.8-10.6) k/uL Plt Count (150-450) k/uL Lymphocytes # (1.0-4.8) k/uL D-Dimer 1.30 H (<0.60) mg/L FEU Est GFR (CKD-EPI)NonAf 51.9 L (60.0-200.0) Glucose 218 H (70-110) mg/dL POC Glucose (mg/dL) 210 H (75-99) mg/dL Calcium 8.2 L (8.7-10.3) mg/dL Ferritin (22.0-322.0) ng/mL AST 36 H (14-35) U/L C-Reactive Protein 5.1 H (0.0-0.8) mg/dL Total Protein 5.0 L (6.2-8.2) g/dL Albumin 3.50 L (3.80-4.90) g/dL Globulin 1.5 L (1.6-3.3) g/dL Coronavirus (PCR) (Not Detected) 04/08/20 04/08/20 04/08/20 Range/Units 11:26 16:27 20:22 WBC (3.8-10.6) k/uL Plt Count (150-450) k/uL Lymphocytes # (1.0-4.8) k/uL D-Dimer (<0.60) mg/L FEU Est GFR (CKD-EPI)NonAf (60.0-200.0) Glucose (70-110) mg/dL POC Glucose (mg/dL) 305 H 289 H 228 H (75-99) mg/dL Calcium (8.7-10.3) mg/dL Ferritin (22.0-322.0) ng/mL AST (14-35) U/L C-Reactive Protein (0.0-0.8) mg/dL Total Protein (6.2-8.2) g/dL Albumin (3.80-4.90) g/dL Globulin (1.6-3.3) g/dL Coronavirus (PCR) (Not Detected) Microbiology - Last 24 Hours (Table) 04/07/20 13:44 Blood Culture - Preliminary Blood No Growth after 24 hours Thrombosis Risk Factor Assmnt - Choose All That Apply Any of the Below Risk Factors Present?: Yes Each Factor Represents 1 point: Obesity (BMI >25), Serious lung disease incl. pneumonia (< 1month) Other Risk Factors: Yes Each Risk Factor Represents 2 Points: Malignancy Each Risk Factor Represents 3 Points: Age 75 years or older Other congenital or acquired thrombophilia - If yes, enter type in comment: No Thrombosis Risk Factor Assessment Total Risk Factor Score: 7 Thrombosis Risk Factor Assessment Level: High Risk Assessment and Plan (1) Sepsis due to COVID-19 Current Visit: Yes Status: Acute Code(s): U07.1 - COVID-19; A41.89 - OTHER SPECIFIED SEPSIS SNOMED Code(s): 253920613 (2) COVID-19 Current Visit: Yes Status: Acute Code(s): U07.1 - COVID-19 SNOMED Code(s): 716210459 (3) Pneumonia due to 2019-nCoV Current Visit: Yes Status: Acute Code(s): U07.1 - COVID-19; J12.89 - OTHER VIRAL PNEUMONIA SNOMED Code(s): 491965091841509421 (4) Type 2 diabetes mellitus Current Visit: Yes Status: Acute Code(s): E11.9 - TYPE 2 DIABETES MELLITUS WITHOUT COMPLICATIONS SNOMED Code(s): 24285410 (5) Essential hypertension Current Visit: Yes Status: Acute Code(s): I10 - ESSENTIAL (PRIMARY) HYPERTENSION SNOMED Code(s): 58705074 Plan: 1. COVID19 pneumonia and sepsis. Admit and pulmonary consult. IV remdesivir and start dexamethasone. Lovenox for DVT prophylaxis. Supplemental O2 as needed to keep above 92% 2. T2DM. Continue amaryl. Hold Januvia. Accucheck and sliding scale 3. HTN. Continue losartan
[2020-04-09 06:58] LABS: Basophils % (A) 1 %; Eosinophils % (A) 1 %; HCT 46.8 % (39.0-53.0); HGB 15.2 gm/dL (13.0-17.5); Lymphocytes # (A) 0.7 k/uL (1.0-4.8); Lymphocytes % (A) 19 %; MCH 30.6 pg (25.0-35.0); MCHC 32.5 g/dL (31.0-37.0); MCV 94.1 fL (80.0-100.0); Mean Platelet Volume 8.8; Monocytes # (A) 0.4 k/uL (0-1.0); Monocytes % (A) 11 %; Neutrophils # (A) 2.4 k/uL (1.3-7.7); Neutrophils % (A) 67 %; Platelet Count 155 k/uL (150-450); RBC 4.97 m/uL (4.30-5.90); RDW 12.8 % (11.5-15.5); WBC 3.6 k/uL (3.8-10.6)
[2020-04-09 07:01] LABS: Glucose,Whole Blood 245 mg/dL (75-99)
[2020-04-09 07:24] LABS: D-Dimer 1.4 mg/L FEU (<0.60)
[2020-04-09] MEDS: FAMOTIDINE 20 MG TAB PO SCH (07:51)
[2020-04-09] MEDS: CLOPIDOGREL 75 MG TAB PO SCH (07:51)
[2020-04-09] MEDS: ASCORBIC ACID 500 MG TAB PO SCH (07:52)
[2020-04-09] MEDS: ENOXAPARIN 40 MG/0.4 ML SYRINGE SQ SCH (07:52)
[2020-04-09] MEDS: INSULIN ASPART (NovoLOG) 100 UNIT/ML VIAL SQ SCH ×4 (07:52→20:50)
[2020-04-09] MEDS: METOPROLOL SUCCINATE (ER) 50 MG TAB.ER.24H PO SCH (07:52)
[2020-04-09] MEDS: LOSARTAN 25 MG TAB PO SCH (07:52)
[2020-04-09] MEDS: amLODIPine 5 MG TAB PO SCH (07:52)
[2020-04-09] MEDS: CALCIUM CARB-VIT D 500MG-200UN 1 EACH TAB PO SCH (07:52)
[2020-04-09] MEDS: ZINC SULFATE 220 MG CAP PO SCH (07:53)
[2020-04-09] MEDS: GLIMEPIRIDE 1 MG TAB PO SCH (07:53)
[2020-04-09] MEDS: dexAMETHasone 2 MG TAB PO SCH (07:53)
[2020-04-09 09:45] LABS: African American GFR (CKD) 73.6 (60.0-200.0); Albumin 3.5 g/dL (3.80-4.90); Albumin/Globulin Ratio 2.19 (1.60-3.17); Anion Gap 9.8 mmol/L (4.00-12.00); BUN/Creat Ratio 18.18 Ratio (12.00-20.00); C Reactive Protein 3.5 mg/dL (0.0-0.8); Calcium 8.4 mg/dL (8.7-10.3); Carbon Dioxide 22.2 mmol/L (21.6-31.8); Globulin 1.6 g/dL (1.6-3.3); Non-African American GFR(CKD) 63.5 (60.0-200.0); Potassium 4.2 mmol/L (3.5-5.5); Total Bilirubin 0.5 mg/dL (0.3-1.2); Total Protein 5.1 g/dL (6.2-8.2)
[2020-04-09 11:25] LABS: Glucose,Whole Blood 160 mg/dL (75-99)
--- NOTE | 2020-04-09 12:45 | P.PN ---
Subjective Progress Note Date: 04/09/20 Principal diagnosis: Acute CoVID 19 pneumonia 79-year-old male patient known history of bladder cancer and chronic kidney disease in addition to history of CVA, an ex-smoker was coming and along with several other family members after being infected with covert 19. The patient started getting some pleuritic approximately a week ago. He has been having progressive worsening shortness of breath along with cough. Today the temperature is 99.5 on arrival. He has body aches. No nausea. No vomiting. No diarrhea. No altered mentation. The white cell count is at 3.3. He has lymphopenia with a lymphocyte count of 0.7. Platelet count is at 158. D-dimer 0.58. Creatinine is at 1.29 with a BUN of 18. Lactic acid was at 2.1 dropped down to 1.2. His CRP level is at 44.2. Influenza screen was negative. The CT angiogram is showing bilateral multifocal groundglass opacities consistent with covert 19 infection. The patient has had a bilateral pleural effusions and a large subcarinal lymph node which is probably not related to covert 19. The patient is seen today 04/08/2020 in follow-up on the regular medical floor. He is awake and alert in no acute distress. Currently sitting up in bed. Denies any worsening shortness of breath, cough or congestion. Maintaining O2 saturations in the low 90s on room air. He is currently afebrile. Hemodynamically stable. White count 1.7. Hemoglobin 14.2. Platelets 130,000. D-dimer 1.0. Sodium 141. Potassium 4.4. Creatinine 1.3. Glucose 218. LDH 216. C-reactive protein 5.1. He is day 2 of them to severe. He is maintained on Zantac, Protonix, vitamin C, vitamin D, dexamethasone, Lovenox. The patient is seen today 04/09/2020 in follow-up on the regular medical floor. He's been up ambulating in his room. Awake and alert in no acute distress. Denies any worsening shortness of breath, cough or congestion. Maintaining O2 saturations in the 90s on room air. Currently afebrile. Blood culture reveals no growth. White count 3.6. Hemoglobin 15.2. Lymphocytes 0.7. D-dimer 1.40. Sodium 140. Potassium 4.2. Creatinine 1.1. LDH 334. C-reactive protein 3.5. He is to receive his third day of Remdesivir. Objective - Vital Signs Vital signs: Vital Signs Temp 98.0 F 04/09/20 07:00 Pulse 58 L 04/09/20 07:00 Resp 19 04/09/20 07:00 BP 152/83 04/09/20 07:00 Pulse Ox 92 L 04/09/20 07:00 Intake & Output 04/08/20 04/09/20 04/09/20 18:59 06:59 18:59 Intake Total 550 Balance 550 Intake: Intake, IV Titration 250 Amount Remdesivir (Eua) 100 mg 250 In Sodium Chloride 0.9% 250 ml @ 250 mls/hr IVPB DAILY@1999 PENDING SALE TO [facility] Rx#: [id number] Oral 300 Other: Voiding Method Toilet # Voids 3 1 - Exam GENERAL EXAM: Alert, active, very pleasant 79-year-old gentleman, on room air, comfortable in no apparent distress. HEAD: Normocephalic. EYES: Normal reaction of pupils, equal size. NOSE: Clear with pink turbinates. THROAT: No erythema or exudates. NECK: No masses, no JVD. CHEST: No chest wall deformity. LUNGS: Equal air entry with few scattered rhonchi. CVS: S1 and S2 normal with no audible murmur, regular rhythm. ABDOMEN: No hepatosplenomegaly, normal bowel sounds, no guarding or rigidity. SPINE: No scoliosis or deformity SKIN: No rashes CENTRAL NERVOUS SYSTEM: No focal deficits, tone is normal in all 4 extremities. EXTREMITIES: There is no peripheral edema. No clubbing, no cyanosis. Peripheral pulses are intact. - Labs CBC & Chem 7: 04/09/20 06:46 04/09/20 06:46 Labs: Abnormal Lab Results - Last 24 Hours (Table) 04/08/20 04/08/20 04/09/20 Range/Units 16:27 20:22 06:46 WBC 3.6 L (3.8-10.6) k/uL Lymphocytes # 0.7 L (1.0-4.8) k/uL D-Dimer (<0.60) mg/L FEU Glucose (70-110) mg/dL POC Glucose (mg/dL) 289 H 228 H (75-99) mg/dL Calcium (8.7-10.3) mg/dL AST (14-35) U/L Lactate Dehydrogenase (120-246) U/L C-Reactive Protein (0.0-0.8) mg/dL Total Protein (6.2-8.2) g/dL Albumin (3.80-4.90) g/dL 04/09/20 04/09/20 04/09/20 Range/Units 06:46 06:46 06:59 WBC (3.8-10.6) k/uL Lymphocytes # (1.0-4.8) k/uL D-Dimer 1.40 H (<0.60) mg/L FEU Glucose 238 H (70-110) mg/dL POC Glucose (mg/dL) 245 H (75-99) mg/dL Calcium 8.4 L (8.7-10.3) mg/dL AST 41 H (14-35) U/L Lactate Dehydrogenase 334 H (120-246) U/L C-Reactive Protein 3.5 H (0.0-0.8) mg/dL Total Protein 5.1 L (6.2-8.2) g/dL Albumin 3.50 L (3.80-4.90) g/dL 04/09/20 Range/Units 11:24 WBC (3.8-10.6) k/uL Lymphocytes # (1.0-4.8) k/uL D-Dimer (<0.60) mg/L FEU Glucose (70-110) mg/dL POC Glucose (mg/dL) 160 H (75-99) mg/dL Calcium (8.7-10.3) mg/dL AST (14-35) U/L Lactate Dehydrogenase (120-246) U/L C-Reactive Protein (0.0-0.8) mg/dL Total Protein (6.2-8.2) g/dL Albumin (3.80-4.90) g/dL Microbiology - Last 24 Hours (Table) 04/07/20 13:44 Blood Culture - Preliminary Blood No Growth after 24 hours Assessment and Plan Assessment: 1 acute COVID 19 pneumonia 2 acute hypoxic respiratory failure secondary to above, improving 3 dyspnea and worsening cough secondary to above, improving 4 lymphopenia secondary to above in addition to mild leukopenia 5 chronic kidney disease with a GFR of 53 6 history of bladder cancer 8 hypertension 9 history of CVA [id number] without any residual deficits 10 history of polycythemia vera and hemoglobin is stable for now 11 peripheral vascular disease with previous stenting of the left lower extremity in 2006 12 history of hyperparathyroidism post parathyroidectomy 13 diabetes mellitus 14 hyperlipidemia Plan The patient was seen and evaluated by Dr. Hernandez Continue Remdesivir Continue current medications including dexamethasone for total of 10 days Continue isolation precautions Possible discharge in a.m. We will continue to follow make further recommendations based on his clinical status I, the cosigning physician, performed a history & physical examination of the patient. Lungs sounds are clear. Maintaining good O2 saturations in the 90s on room air. I discussed the assessment and plan of care with my nurse practitioner, Pam Mccall. I attest to the above note as dictated by her.
--- NOTE | 2020-04-09 13:40 | P.PN ---
Subjective Progress Note Date: 04/09/20 Michael Monson is a 79 yo M with PMH of bladder cancer, T2DM, HTN who presented to the ED with worsening COVID 19. He reports his symptoms started a little more than a week ago and has developed progressive and worsening shortness of breath, pleuritic chest pain and fever. His had similar symptoms and both were positive for COVID 19 testing outpatient. On presentation he was febrile and hypoxic on room air; WBC 3.3k reflecting lymphopenia with a lymphocyte count of 0.7. CT angiogram with bilateral multifocal groundglass opacities consistent with COVID19 infection. 04/09/2020 continues on remdesivir, Decadron, zinc, vitamin C. significant clinical improvement. Maintaining O2 sats in the low 90s on room air. Afebrile, WBC 3.6. Preliminary blood cultures reporting no growth at 24 hours. Blood sugars improving. Mild increase in both D-dimer 1.4, LDH 334, with improvement in CRP, 3.5. Denies cough or congestion. Denies chest pain, palpitations or shortness of breath. Objective - Vital Signs Vital signs: Vital Signs Temp 98.0 F 04/09/20 07:00 Pulse 58 L 04/09/20 07:00 Resp 19 04/09/20 07:00 BP 152/83 04/09/20 07:00 Pulse Ox 92 L 04/09/20 07:00 Intake & Output 04/08/20 04/09/20 04/09/20 18:59 06:59 18:59 Intake Total 550 Balance 550 Intake: Intake, IV Titration 250 Amount Remdesivir (Eua) 100 mg 250 In Sodium Chloride 0.9% 250 ml @ 250 mls/hr IVPB DAILY@1999 [facility] Rx#: [id number] Oral 300 Other: Voiding Method Toilet # Voids 3 1 - Exam General: Sitting up in bed, NAD. Vitals reviewed Eyes: PERRL, EOMI, conjunctiva normal HENT: normocephalic, mucus membranes moist Neck: supple, no JVD Lungs: normal respiratory effort, bilateral rhonchi CV: Regular rate and rhythm, no murmur. Peripheral pulses 2+ Abdomen: soft, nondistended, no organomegaly Skin: warm and dry. Neuro: A&Ox3, normal mood and affect, no focal deficits. - Labs CBC & Chem 7: 04/09/20 06:46 04/09/20 06:46 Labs: Abnormal Lab Results - Last 24 Hours (Table) 04/08/20 04/08/20 04/09/20 Range/Units 16:27 20:22 06:46 WBC 3.6 L (3.8-10.6) k/uL Lymphocytes # 0.7 L (1.0-4.8) k/uL D-Dimer (<0.60) mg/L FEU Glucose (70-110) mg/dL POC Glucose (mg/dL) 289 H 228 H (75-99) mg/dL Calcium (8.7-10.3) mg/dL AST (14-35) U/L Lactate Dehydrogenase (120-246) U/L C-Reactive Protein (0.0-0.8) mg/dL Total Protein (6.2-8.2) g/dL Albumin (3.80-4.90) g/dL 04/09/20 04/09/20 04/09/20 Range/Units 06:46 06:46 06:59 WBC (3.8-10.6) k/uL Lymphocytes # (1.0-4.8) k/uL D-Dimer 1.40 H (<0.60) mg/L FEU Glucose 238 H (70-110) mg/dL POC Glucose (mg/dL) 245 H (75-99) mg/dL Calcium 8.4 L (8.7-10.3) mg/dL AST 41 H (14-35) U/L Lactate Dehydrogenase 334 H (120-246) U/L C-Reactive Protein 3.5 H (0.0-0.8) mg/dL Total Protein 5.1 L (6.2-8.2) g/dL Albumin 3.50 L (3.80-4.90) g/dL 04/09/20 Range/Units 11:24 WBC (3.8-10.6) k/uL Lymphocytes # (1.0-4.8) k/uL D-Dimer (<0.60) mg/L FEU Glucose (70-110) mg/dL POC Glucose (mg/dL) 160 H (75-99) mg/dL Calcium (8.7-10.3) mg/dL AST (14-35) U/L Lactate Dehydrogenase (120-246) U/L C-Reactive Protein (0.0-0.8) mg/dL Total Protein (6.2-8.2) g/dL Albumin (3.80-4.90) g/dL Microbiology - Last 24 Hours (Table) 04/07/20 13:44 Blood Culture - Preliminary Blood No Growth after 24 hours Assessment and Plan Assessment: (1) Sepsis due to acute COVID-19 Viral pneumonia Current Visit: Yes Status: Acute Code(s): U07.1 - COVID-19; A41.89 - OTHER SPECIFIED SEPSIS SNOMED Code(s): 031828322 Current Visit: Yes Status: Acute Code(s): U07.1 - COVID-19; J12.89 - OTHER VIRAL PNEUMONIA SNOMED Code(s): 487620469403702517 (2) acute hypoxic respiratory failure secondary to the above, improving (3) chronic kidney disease, stage II (4) Type 2 diabetes mellitus Current Visit: Yes Status: Acute Code(s): E11.9 - TYPE 2 DIABETES MELLITUS WITHOUT COMPLICATIONS SNOMED Code(s): 02983946 (5) Essential hypertension Current Visit: Yes Status: Acute Code(s): I10 - ESSENTIAL (PRIMARY) HYPERTENSION SNOMED Code(s): 38166739 (6) 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 Maintain remdesivir, Decadron, zinc, vitamin C. increase ambulation as tolerated. Discharge planning in progress pending completion of Remdesivir. The impression and plan of care has been dictated as directed. : I performed a history and examination of this patient, discussed the same with the dictator. I agree with the dictator's note ,documented as a scribe. Any additional findings or plans will be noted.
[2020-04-09 16:22] LABS: Glucose,Whole Blood 315 mg/dL (75-99)
[2020-04-09] MEDS: SODIUM CHLORIDE 0.9% 1,000 ML IV SCH ×2 (16:56→22:46)
[2020-04-09] MEDS: REMDESIVIR (EUA) 100 MG in SODIUM CHLORIDE 0.9% 250 ML IVPB SCH (20:36)
[2020-04-09] MEDS: ASPIRIN 81 MG PO SCH (20:40)
[2020-04-09] MEDS: ATORVASTATIN 40 MG TAB PO SCH (20:40)
[2020-04-09] MEDS: allopurinoL 100 MG TAB PO SCH (20:40)
[2020-04-09 20:41] LABS: Glucose,Whole Blood 283 mg/dL (75-99)
[2020-04-10 06:21] LABS: Basophils % (A) 0 %; Eosinophils % (A) 1 %; HCT 49.3 % (39.0-53.0); HGB 15.9 gm/dL (13.0-17.5); Lymphocytes # (A) 0.7 k/uL (1.0-4.8); Lymphocytes % (A) 13 %; MCH 30.5 pg (25.0-35.0); MCHC 32.3 g/dL (31.0-37.0); MCV 94.5 fL (80.0-100.0); Monocytes # (A) 0.5 k/uL (0-1.0); Monocytes % (A) 9 %; Neutrophils # (A) 3.9 k/uL (1.3-7.7); Neutrophils % (A) 74 %; Platelet Count 172 k/uL (150-450); RBC 5.21 m/uL (4.30-5.90); RDW 12.9 % (11.5-15.5); WBC 5.3 k/uL (3.8-10.6)
[2020-04-10 06:47] LABS: D-Dimer 1.07 mg/L FEU (<0.60)
[2020-04-10 07:07] LABS: Glucose,Whole Blood 216 mg/dL (75-99)
[2020-04-10] MEDS: ZINC SULFATE 220 MG CAP PO SCH (08:35)
[2020-04-10] MEDS: ASCORBIC ACID 500 MG TAB PO SCH (08:36)
[2020-04-10] MEDS: CLOPIDOGREL 75 MG TAB PO SCH (08:36)
[2020-04-10] MEDS: METOPROLOL SUCCINATE (ER) 50 MG TAB.ER.24H PO SCH (08:36)
[2020-04-10] MEDS: amLODIPine 5 MG TAB PO SCH (08:36)
[2020-04-10] MEDS: dexAMETHasone 2 MG TAB PO SCH (08:36)
[2020-04-10] MEDS: FAMOTIDINE 20 MG TAB PO SCH (08:36)
[2020-04-10] MEDS: GLIMEPIRIDE 1 MG TAB PO SCH (08:36)
[2020-04-10] MEDS: INSULIN ASPART (NovoLOG) 100 UNIT/ML VIAL SQ SCH ×4 (08:36→20:56)
[2020-04-10] MEDS: CALCIUM CARB-VIT D 500MG-200UN 1 EACH TAB PO SCH (08:36)
[2020-04-10] MEDS: LOSARTAN 25 MG TAB PO SCH (08:36)
[2020-04-10] MEDS: ENOXAPARIN 40 MG/0.4 ML SYRINGE SQ SCH (08:37)
[2020-04-10 10:10] LABS: African American GFR (CKD) 73.6 (60.0-200.0); Albumin 3.6 g/dL (3.80-4.90); Albumin/Globulin Ratio 2.25 (1.60-3.17); Anion Gap 11.7 mmol/L (4.00-12.00); BUN/Creat Ratio 20.91 Ratio (12.00-20.00); C Reactive Protein 2.3 mg/dL (0.0-0.8); Calcium 8.5 mg/dL (8.7-10.3); Carbon Dioxide 22.3 mmol/L (21.6-31.8); Globulin 1.6 g/dL (1.6-3.3); Non-African American GFR(CKD) 63.5 (60.0-200.0); Potassium 4.1 mmol/L (3.5-5.5); Total Bilirubin 0.5 mg/dL (0.3-1.2); Total Protein 5.2 g/dL (6.2-8.2)
[2020-04-10 11:05] LABS: Glucose,Whole Blood 223 mg/dL (75-99)
--- NOTE | 2020-04-10 12:55 | P.PN ---
Subjective Progress Note Date: 04/10/20 Principal diagnosis: COVID 19 infection 79-year-old male patient known history of bladder cancer and chronic kidney disease in addition to history of CVA, an ex-smoker was coming and along with several other family members after being infected with covert 19. The patient started getting some pleuritic approximately a week ago. He has been having progressive worsening shortness of breath along with cough. Today the temperature is 99.5 on arrival. He has body aches. No nausea. No vomiting. No diarrhea. No altered mentation. The white cell count is at 3.3. He has lym phopenia with a lymphocyte count of 0.7. Platelet count is at 158. D-dimer 0.58. Creatinine is at 1.29 with a BUN of 18. Lactic acid was at 2.1 dropped down to 1.2. His CRP level is at 44.2. Influenza screen was negative. The CT angiogram is showing bilateral multifocal groundglass opacities consistent with covert 19 infection. The patient has had a bilateral pleural effusions and a large subcarinal lymph node which is probably not related to covert 19. The patient is seen today 04/08/2020 in follow-up on the regular medical floor. He is awake and alert in no acute distress. Currently sitting up in bed. Denies any worsening shortness of breath, cough or congestion. Maintaining O2 saturations in the low 90s on room air. He is currently afebrile. Hemodynamically stable. White count 1.7. Hemoglobin 14.2. Platelets 130,000. D-dimer 1.0. Sodium 141. Potassium 4.4. Creatinine 1.3. Glucose 218. LDH 216. C-reactive protein 5.1. He is day 2 of them to severe. He is maintained on Zantac, Protonix, vitamin C, vitamin D, dexamethasone, Lovenox. The patient is seen today 04/09/2020 in follow-up on the regular medical floor. He's been up ambulating in his room. Awake and alert in no acute distress. Denies any worsening shortness of breath, cough or congestion. Maintaining O2 saturations in the 90s on room air. Currently afebrile. Blood culture reveals no growth. White count 3.6. Hemoglobin 15.2. Lymphocytes 0.7. D-dimer 1.40. Sodium 140. Potassium 4.2. Creatinine 1.1. LDH 334. C-reactive protein 3.5. He is to receive his third day of Remdesivir. On 04/10/2020 patient seen in follow-up on general medical surgical floor, feeling better, improving, room air pulse ox is 93%, afebrile, breathing is nonlabored, no significant cough, but a signs have been stable, patient is on day 4 of Remdesivir, he is on oral Decadron, Pepcid, prophylactic Lovenox, microbiology has been negative. Labs have been reviewed, lymphocyte, remains low at 0.7, d-dimer is 1.07, shows renal profile are unremarkable, LDH is 306, CRP has come down to 2.3 Objective - Vital Signs Vital signs: Vital Signs Temp 97.9 F 04/10/20 07:00 Pulse 53 L 04/10/20 07:00 Resp 17 04/10/20 07:00 BP 170/82 04/10/20 07:00 Pulse Ox 93 L 04/10/20 07:00 Intake & Output 04/09/20 04/10/20 04/10/20 18:59 06:59 18:59 Other: Voiding Method Toilet # Voids 3 1 - Exam GENERAL EXAM: Alert, very pleasant, 79-year-old male, on room air with a pulse ox of 93% comfortable in no apparent distress. HEAD: Normocephalic/atraumatic. EYES: Normal reaction of pupils, equal size. Conjunctiva pink, sclera white. NOSE: Clear with pink turbinates. THROAT: No erythema or exudates. NECK: No masses, no JVD, no thyroid enlargement, no adenopathy. CHEST: No chest wall deformity. Symmetrical expansion. LUNGS: Equal air entry with no crackles, wheeze, rhonchi or dullness. CVS: Regular rate and rhythm, normal S1 and S2, no gallops, no murmurs, no rubs ABDOMEN: Soft, nontender. No hepatosplenomegaly, normal bowel sounds, no guarding or rigidity. EXTREMITIES: No clubbing, no edema, no cyanosis, 2+ pulses and upper and lower extremities. MUSCULOSKELETAL: Muscle strength and tone normal. SPINE: No scoliosis or deformity SKIN: No rashes CENTRAL NERVOUS SYSTEM: Alert and oriented -3. No focal deficits, tone is normal in all 4 extremities. PSYCHIATRIC: Alert and oriented -3. Appropriate affect. Intact judgment and insight. - Labs CBC & Chem 7: 04/10/20 05:56 04/10/20 05:56 Labs: Abnormal Lab Results - Last 24 Hours (Table) 04/09/20 04/09/20 04/10/20 Range/Units 16:21 20:39 05:56 Lymphocytes # 0.7 L (1.0-4.8) k/uL D-Dimer (<0.60) mg/L FEU BUN/Creatinine Ratio (12.00-20.00) Ratio Glucose (70-110) mg/dL POC Glucose (mg/dL) 315 H 283 H (75-99) mg/dL Calcium (8.7-10.3) mg/dL AST (14-35) U/L Lactate Dehydrogenase (120-246) U/L C-Reactive Protein (0.0-0.8) mg/dL Total Protein (6.2-8.2) g/dL Albumin (3.80-4.90) g/dL 04/10/20 04/10/20 04/10/20 Range/Units 05:56 05:56 07:06 Lymphocytes # (1.0-4.8) k/uL D-Dimer 1.07 H (<0.60) mg/L FEU BUN/Creatinine Ratio 20.91 H (12.00-20.00) Ratio Glucose 243 H (70-110) mg/dL POC Glucose (mg/dL) 216 H (75-99) mg/dL Calcium 8.5 L (8.7-10.3) mg/dL AST 43 H (14-35) U/L Lactate Dehydrogenase 306 H (120-246) U/L C-Reactive Protein 2.3 H (0.0-0.8) mg/dL Total Protein 5.2 L (6.2-8.2) g/dL Albumin 3.60 L (3.80-4.90) g/dL 04/10/20 Range/Units 11:03 Lymphocytes # (1.0-4.8) k/uL D-Dimer (<0.60) mg/L FEU BUN/Creatinine Ratio (12.00-20.00) Ratio Glucose (70-110) mg/dL POC Glucose (mg/dL) 223 H (75-99) mg/dL Calcium (8.7-10.3) mg/dL AST (14-35) U/L Lactate Dehydrogenase (120-246) U/L C-Reactive Protein (0.0-0.8) mg/dL Total Protein (6.2-8.2) g/dL Albumin (3.80-4.90) g/dL Microbiology - Last 24 Hours (Table) 04/07/20 13:44 Blood Culture - Preliminary Blood No Growth after 48 hours Assessment and Plan Plan: Assessment: 1 acute COVID 19 pneumonia 2 acute hypoxic respiratory failure secondary to above, improving 3 dyspnea and worsening cough secondary to above, improving 4 lymphopenia secondary to above in addition to mild leukopenia 5 chronic kidney disease with a GFR of 53 6 history of bladder cancer 8 hypertension 9 history of CVA [id number] without any residual deficits 10 history of polycythemia vera and hemoglobin is stable for now 11 peripheral vascular disease with previous stenting of the left lower extremity in 2006 12 history of hyperparathyroidism post parathyroidectomy 13 diabetes mellitus 14 hyperlipidemia Plan: Continue Remdesivir, Lovenox, Decadron, Pepcid. Vital signs are stable, room air pulse ox is 93%, shortness of breath has improved. CRP is trending down. We'll continue to monitor at a 24 hours, continues to improve will consider discharge home tomorrow after finishing his fifth dose of Remdesivir. I performed a history & physical examination of the patient and discussed their management with my nurse practitioner, Marlen Jackson. I reviewed the nurse pasquale cooper's note and agree with the documented findings and plan of care. Lung sounds are positive for diminished breath sounds. The findings and the impression was discussed with the patient. I attest to the documentation by the nurse practitioner. Time with Patient: Less than 30
--- NOTE | 2020-04-10 14:06 | P.PN ---
Subjective Progress Note Date: 04/10/20 Michael Monson is a 79 yo M with PMH of bladder cancer, T2DM, HTN who presented to the ED with worsening COVID 19. He reports his symptoms started a little more than a week ago and has developed progressive and worsening shortness of breath, pleuritic chest pain and fever. His had similar symptoms and both were positive for COVID 19 testing outpatient. On presentation he was febrile and hypoxic on room air; WBC 3.3k reflecting lymphopenia with a lymphocyte count of 0.7. CT angiogram with bilateral multifocal groundglass opacities consistent with COVID19 infection. 04/09/2020 continues on remdesivir, Decadron, zinc, vitamin C. significant clinical improvement. Maintaining O2 sats in the low 90s on room air. Afebrile, WBC 3.6. Preliminary blood cultures reporting no growth at 24 hours. Blood sugars improving. Mild increase in both D-dimer 1.4, LDH 334, with improvement in CRP, 3.5. Denies cough or congestion. Denies chest pain, palpitations or shortness of breath. 04/10/2020 oxygen weaned off, maintaining O2 sats in the low 90s on room air. Afebrile. Continues on day four of remdesivir, Decadron, zinc, vitamin C. afebrile with normal WBC. Improving markers, d-dimer 1.07, creatinine kinase 158, LDH 306, CRP 2.3. Renal function remains stable. Denies chest pain, palpitations or shortness of breath Objective - Vital Signs Vital signs: Vital Signs Temp 97.9 F 04/10/20 07:00 Pulse 53 L 04/10/20 07:00 Resp 17 04/10/20 07:00 BP 170/82 04/10/20 07:00 Pulse Ox 93 L 04/10/20 07:00 Intake & Output 04/09/20 04/10/20 04/10/20 18:59 06:59 18:59 Other: Voiding Method Toilet # Voids 3 1 - Exam General: Sitting up in bed, NAD. Vitals reviewed Eyes: PERRL, EOMI, conjunctiva normal HENT: normocephalic, mucus membranes moist Neck: supple, no JVD Lungs: normal respiratory effort, clear to auscultation CV: Regular rate and rhythm, no murmur. Peripheral pulses 2+ Abdomen: soft, nondistended, no organomegaly, positive bowel sounds Skin: warm and dry. Neuro: A&Ox3, normal mood and affect, no focal deficits. Microbiology 04/07/20 13:44 Blood Blood Culture - Preliminary No Growth after 48 hours - Labs CBC & Chem 7: 04/10/20 05:56 04/10/20 05:56 Labs: Abnormal Lab Results - Last 24 Hours (Table) 04/09/20 04/09/20 04/10/20 Range/Units 16:21 20:39 05:56 Lymphocytes # 0.7 L (1.0-4.8) k/uL D-Dimer (<0.60) mg/L FEU BUN/Creatinine Ratio (12.00-20.00) Ratio Glucose (70-110) mg/dL POC Glucose (mg/dL) 315 H 283 H (75-99) mg/dL Calcium (8.7-10.3) mg/dL AST (14-35) U/L Lactate Dehydrogenase (120-246) U/L C-Reactive Protein (0.0-0.8) mg/dL Total Protein (6.2-8.2) g/dL Albumin (3.80-4.90) g/dL 04/10/20 04/10/20 04/10/20 Range/Units 05:56 05:56 07:06 Lymphocytes # (1.0-4.8) k/uL D-Dimer 1.07 H (<0.60) mg/L FEU BUN/Creatinine Ratio 20.91 H (12.00-20.00) Ratio Glucose 243 H (70-110) mg/dL POC Glucose (mg/dL) 216 H (75-99) mg/dL Calcium 8.5 L (8.7-10.3) mg/dL AST 43 H (14-35) U/L Lactate Dehydrogenase 306 H (120-246) U/L C-Reactive Protein 2.3 H (0.0-0.8) mg/dL Total Protein 5.2 L (6.2-8.2) g/dL Albumin 3.60 L (3.80-4.90) g/dL 04/10/20 Range/Units 11:03 Lymphocytes # (1.0-4.8) k/uL D-Dimer (<0.60) mg/L FEU BUN/Creatinine Ratio (12.00-20.00) Ratio Glucose (70-110) mg/dL POC Glucose (mg/dL) 223 H (75-99) mg/dL Calcium (8.7-10.3) mg/dL AST (14-35) U/L Lactate Dehydrogenase (120-246) U/L C-Reactive Protein (0.0-0.8) mg/dL Total Protein (6.2-8.2) g/dL Albumin (3.80-4.90) g/dL Microbiology - Last 24 Hours (Table) 04/07/20 13:44 Blood Culture - Preliminary Blood No Growth after 48 hours Assessment and Plan Assessment: (1) Sepsis due to acute COVID-19 Viral pneumonia Current Visit: Yes Status: Acute Code(s): U07.1 - COVID-19; A41.89 - OTHER SPECIFIED SEPSIS SNOMED Code(s): 702874776 Current Visit: Yes Status: Acute Code(s): U07.1 - COVID-19; J12.89 - OTHER VIRAL PNEUMONIA SNOMED Code(s): 223280514747947379 (2) acute hypoxic respiratory failure secondary to the above, improving (3) chronic kidney disease, stage II (4) Type 2 diabetes mellitus Current Visit: Yes Status: Acute Code(s): E11.9 - TYPE 2 DIABETES MELLITUS WITHOUT COMPLICATIONS SNOMED Code(s): 53240816 (5) Essential hypertension Current Visit: Yes Status: Acute Code(s): I10 - ESSENTIAL (PRIMARY) HYPERTENSION SNOMED Code(s): 90303277 (6)history of CVA without residuals (7) history of hyperparathyroidism with parathyroidectomy (8) history of bladder cancer Plan: Continue on current medication regimen ,monitoring and symptomatic treatment. Continue remdesivir, Decadron, zinc, vitamin C. maintain supportive care, close monitoring overnight. Discharge planning in progress pending completion of Remdesivir tomorrow. The impression and plan of care has been dictated as directed. : I performed a history and examination of this patient, discussed the same with the dictator. I agree with the dictator's note ,documented as a scribe. Any additional findings or plans will be noted.
[2020-04-10 16:40] LABS: Glucose,Whole Blood 195 mg/dL (75-99)
[2020-04-10 20:33] LABS: Glucose,Whole Blood 293 mg/dL (75-99)
[2020-04-10] MEDS: ASPIRIN 81 MG PO SCH (20:56)
[2020-04-10] MEDS: ATORVASTATIN 40 MG TAB PO SCH (20:56)
[2020-04-10] MEDS: allopurinoL 100 MG TAB PO SCH (20:56)
[2020-04-10] MEDS: SODIUM CHLORIDE 0.9% 1,000 ML IV SCH (20:57)
[2020-04-10] MEDS: REMDESIVIR (EUA) 100 MG in SODIUM CHLORIDE 0.9% 250 ML IVPB SCH (21:30)
[2020-04-10 23:35] VITALS: RESP 18
[2020-04-11 07:18] LABS: Glucose,Whole Blood 203 mg/dL (75-99)
[2020-04-11] MEDS: SODIUM CHLORIDE 0.9% 1,000 ML IV SCH (08:01)
[2020-04-11] MEDS: dexAMETHasone 2 MG TAB PO SCH (08:08)
[2020-04-11] MEDS: METOPROLOL SUCCINATE (ER) 50 MG TAB.ER.24H PO SCH (08:08)
[2020-04-11] MEDS: ASCORBIC ACID 500 MG TAB PO SCH (08:08)
[2020-04-11] MEDS: FAMOTIDINE 20 MG TAB PO SCH (08:08)
[2020-04-11] MEDS: GLIMEPIRIDE 1 MG TAB PO SCH (08:08)
[2020-04-11] MEDS: CALCIUM CARB-VIT D 500MG-200UN 1 EACH TAB PO SCH (08:08)
[2020-04-11] MEDS: CLOPIDOGREL 75 MG TAB PO SCH (08:08)
[2020-04-11] MEDS: amLODIPine 5 MG TAB PO SCH (08:08)
[2020-04-11] MEDS: ZINC SULFATE 220 MG CAP PO SCH (08:08)
[2020-04-11] MEDS: ENOXAPARIN 40 MG/0.4 ML SYRINGE SQ SCH (08:08)
[2020-04-11] MEDS: LOSARTAN 25 MG TAB PO SCH (08:08)
[2020-04-11] MEDS: INSULIN ASPART (NovoLOG) 100 UNIT/ML VIAL SQ SCH ×2 (08:09→12:02)
[2020-04-11 11:35] LABS: Glucose,Whole Blood 287 mg/dL (75-99)
--- NOTE | 2020-04-11 11:40 | P.PN ---
Subjective Progress Note Date: 04/11/20 Principal diagnosis: Acute CoVID 19 pneumonia 79-year-old male patient known history of bladder cancer and chronic kidney disease in addition to history of CVA, an ex-smoker was coming and along with several other family members after being infected with covert 19. The patient started getting some pleuritic approximately a week ago. He has been having progressive worsening shortness of breath along with cough. Today the temperature is 99.5 on arrival. He has body aches. No nausea. No vomiting. No diarrhea. No altered mentation. The white cell count is at 3.3. He has lymphopenia with a lymphocyte count of 0.7. Platelet count is at 158. D-dimer 0.58. Creatinine is at 1.29 with a BUN of 18. Lactic acid was at 2.1 dropped down to 1.2. His CRP level is at 44.2. Influenza screen was negative. The CT angiogram is showing bilateral multifocal groundglass opacities consistent with covert 19 infection. The patient has had a bilateral pleural effusions and a large subcarinal lymph node which is probably not related to covert 19. The patient is seen today 04/08/2020 in follow-up on the regular medical floor. He is awake and alert in no acute distress. Currently sitting up in bed. Denies any worsening shortness of breath, cough or congestion. Maintaining O2 saturations in the low 90s on room air. He is currently afebrile. Hemodynamically stable. White count 1.7. Hemoglobin 14.2. Platelets 130,000. D-dimer 1.0. Sodium 141. Potassium 4.4. Creatinine 1.3. Glucose 218. LDH 216. C-reactive protein 5.1. He is day 2 of them to severe. He is maintained on Zantac, Protonix, vitamin C, vitamin D, dexamethasone, Lovenox. The patient is seen today 04/09/2020 in follow-up on the regular medical floor. He's been up ambulating in his room. Awake and alert in no acute distress. Denies any worsening shortness of breath, cough or congestion. Maintaining O2 saturations in the 90s on room air. Currently afebrile. Blood culture reveals no growth. White count 3.6. Hemoglobin 15.2. Lymphocytes 0.7. D-dimer 1.40. Sodium 140. Potassium 4.2. Creatinine 1.1. LDH 334. C-reactive protein 3.5. He is to receive his third day of Remdesivir. The patient is seen today 04/11/2020 in follow-up on the regular medical floor. He is sitting up in bed. Awake and alert in no acute distress. Denies any shortness of breath, cough or congestion. No fever, chills or night sweats. No nausea, vomiting or diarrhea. Maintaining O2 saturations in the mid 90s on room air. He's afebrile. Blood culture reveals no growth. Glucose 203. Today is day 5 of the Remdesivir. He is continued on vitamin C, vitamin D, Decadron, Lovenox, Pepcid, zinc Objective - Vital Signs Vital signs: Vital Signs Temp 98.2 F 04/11/20 07:00 Pulse 58 L 04/11/20 07:00 Resp 18 04/10/20 23:35 BP 146/90 04/11/20 07:00 Pulse Ox 96 04/11/20 07:00 Intake & Output 04/10/20 04/11/20 04/11/20 18:59 06:59 18:59 Intake Total 1000 Balance 1000 Intake: Intake, IV Titration 400 Amount Remdesivir (Eua) 100 mg 250 In Sodium Chloride 0.9% 250 ml @ 250 mls/hr IVPB DAILY@2000 [facility] Rx#: [id number] Sodium Chloride 0.9% 1, 150 000 ml @ 75 mls/hr IV . [id number] [facility] Rx#:[id number] Oral 600 Other: Voiding Method Toilet # Voids 5 2 - Exam GENERAL EXAM: Alert, active, very pleasant 79-year-old gentleman, on room air, comfortable in no apparent distress. HEAD: Normocephalic. EYES: Normal reaction of pupils, equal size. NOSE: Clear with pink turbinates. THROAT: No erythema or exudates. NECK: No masses, no JVD. CHEST: No chest wall deformity. LUNGS: Equal air entry with no crackles, rhonchi or wheeze. CVS: S1 and S2 normal with no audible murmur, regular rhythm. ABDOMEN: No hepatosplenomegaly, normal bowel sounds, no guarding or rigidity. SPINE: No scoliosis or deformity SKIN: No rashes CENTRAL NERVOUS SYSTEM: No focal deficits, tone is normal in all 4 extremities. EXTREMITIES: There is no peripheral edema. No clubbing, no cyanosis. Peripheral pulses are intact. - Labs CBC & Chem 7: 04/10/20 05:56 04/10/20 05:56 Labs: Abnormal Lab Results - Last 24 Hours (Table) 04/10/20 04/10/20 04/11/20 Range/Units 16:38 20:32 07:17 POC Glucose (mg/dL) 195 H 293 H 203 H (75-99) mg/dL 04/11/20 Range/Units 11:33 POC Glucose (mg/dL) 287 H (75-99) mg/dL Microbiology - Last 24 Hours (Table) 04/07/20 13:44 Blood Culture - Preliminary Blood No Growth after 72 hours Assessment and Plan Assessment: 1 acute COVID 19 pneumonia 2 acute hypoxic respiratory failure secondary to above, improving 3 dyspnea and worsening cough secondary to above, improving 4 lymphopenia secondary to above in addition to mild leukopenia 5 chronic kidney disease with a GFR of 53 6 history of bladder cancer 8 hypertension 9 history of CVA [id number] without any residual deficits 10 history of polycythemia vera and hemoglobin is stable for now 11 peripheral vascular disease with previous stenting of the left lower extremity in 2006 12 history of hyperparathyroidism post parathyroidectomy 13 diabetes mellitus 14 hyperlipidemia Plan The patient was seen and evaluated by Dr. Hernandez Plan is to complete his last dose of REM to severe today Cleared for discharge from the pulmonary standpoint I, the cosigning physician, performed a history & physical examination of the patient. Lungs sounds are clear. Maintaining good O2 saturations in the 90s on room air. I discussed the assessment and plan of care with my nurse practitioner, Pam Mccall. I attest to the above note as dictated by her.
[2020-04-11] MEDS: REMDESIVIR (EUA) 100 MG in SODIUM CHLORIDE 0.9% 250 ML IVPB SCH (15:00)
[2020-04-11 15:32] VITALS: BP 142/92; PULSE 60; TEMP 98.8
== END 2020-04-11 16:25 | disposition home or self-care (01) | DRG 871 ==
LOC: EC 12:15 → 4SSUR 15:02
PROVIDERS: ADMIT Family Medicine; ATTEND Family Medicine
DX: A41.89 Other specified sepsis (principal); J12.89 Other viral pneumonia; J96.01 Acute respiratory failure with hypoxia; U07.1 COVID-19; D45 Polycythemia vera; D72.810 Lymphocytopenia; E11.22 Type 2 diabetes mellitus with diabetic chronic kidney disease; E11.51 Type 2 diabetes mellitus with diabetic peripheral angiopathy without gangrene; E78.5 Hyperlipidemia, unspecified; I12.9 Hypertensive chronic kidney disease with stage 1 through stage 4 chronic kidney disease, or unspecified chronic kidney disease; N18.30 Chronic kidney disease, stage 3 unspecified; R62.7 Adult failure to thrive; Z91.040 Latex allergy status; Z86.010 Personal history of colon polyps; Z87.19 Personal history of other diseases of the digestive system; Z82.3 Family history of stroke; Z82.49 Family history of ischemic heart disease and other diseases of the circulatory system; Z83.2 Family history of diseases of the blood and blood-forming organs and certain disorders involving the immune mechanism; D72.819 Decreased white blood cell count, unspecified; E89.2 Postprocedural hypoparathyroidism; Z90.49 Acquired absence of other specified parts of digestive tract; Z95.828 Presence of other vascular implants and grafts; Z98.42 Cataract extraction status, left eye; Z98.41 Cataract extraction status, right eye; Z96.1 Presence of intraocular lens; Z79.02 Long term (current) use of antithrombotics/antiplatelets; Z79.82 Long term (current) use of aspirin; Z79.84 Long term (current) use of oral hypoglycemic drugs; Z79.899 Other long term (current) drug therapy; Z85.51 Personal history of malignant neoplasm of bladder; Z86.73 Personal history of transient ischemic attack (TIA), and cerebral infarction without residual deficits; Z87.891 Personal history of nicotine dependence; Z80.9 Family history of malignant neoplasm, unspecified
CPT/HCPCS: 36415; 71045; 71275; 80053; 82550; 82728; 83605; 83615; 83690; 83735; 84145; 85025; 85379; 85384; 85610; 85730; 86140; 87040; 87502; 93005; 96360; 96361; 99285